=== PATIENT | female | born 1960 | race Caucasian/White ===

== ENCOUNTER → 2019-10-15 11:11 | Outpatient (CLI) | payer MEDICARE, SELFPAY ==
[2019-10-15 10:26] VITALS: BMI 39.8
[2019-10-15 12:38] LABS: Absolute Lymphocyte Count 3.93 X10^3/uL (0.83-4.51); Absolute Neutrophil Count 6.9 X10^3/uL (2.0-7.7); Basophil# 0.07 X10^3/uL; Basophil% 0.6 % (0-1); Eosinophil# 0.42 X10^3/uL; Eosinophils% 3.5 % (0-5); Hematocrit 44.7 % (37-47); Hemoglobin 14.5 g/dL (12.0-15.0); Lymphocyte # 3.93 X10^3/ul (4.0); Lymphocyte % 32.9 % (19-41); Mean Corp Hgb Conc 32.4 g/dL (32-36); Mean Corpuscular Hgb 29.8 pg (27.0-32.0); Mean Corpuscular Volume 91.8 fL (81-99); Mean Platelet Vol. 10.8 fl (6.2-12.0); NRBC Flagged by Analyzer 0 % (0-5); Neutrophil # 6.89 X10^3/uL (2.7-7.7); Neutrophil % 57.7 % (47-70); Platelet Count 285 K/mm3 (150-450); RBC Distribution Width CV 13.7 % (11.6-14.6); RBC Distribution Width SD 46.5 fl (35.1-43.9); Red Blood Count 4.87 M/mm3 (4.2-5.4)
[2019-10-15 12:49] LABS: Hemoglobin A1c 7.5 % (4.2-6.3)
[2019-10-15 13:00] LABS: ALB/GLOB Ratio 0.9 RATIO (0.9-2.4); AST(SGOT) 15 U/L (15-37); Alanine Aminotransfer ALT/SGPT 33 U/L (13-56); Albumin, Serum 3.6 g/dL (3.2-5.0); Alkaline Phosphatase 87 U/L (45-117); Anion Gap 7 (5-15); BUN 16 mg/dL (7-18); BUN/Creat Ratio 17.1 RATIO (10-20); Calcium,Total 8.9 mg/dL (8.5-10.1); Chloride 104 mmol/L (98-107); Cholesterol 211 mg/dL (200); Creatinine, Serum 0.93 mg/dL (0.55-1.02); EST Glomerular Filtration Rate 65 mL/min (>60); Est Glom Filt Rate - Afr Amer 79 mL/min (>60); Globulin 4.2 g/dL (2.2-4.2); Glucose 153 mg/dL (74-106); High Density Lipoprotein 62 mg/dL; Potassium 4.6 mmol/L (3.5-5.1); Protein, Total 7.8 g/dL (6.4-8.2); Sodium Level 139 mmol/L (136-145); Triglycerides 189 mg/dL; Very Low Density Lipoprotein 38 mg/dL (5-40)
[2019-10-15 13:21] LABS: Microalbumin,Random Urine 38.9 mg/L (NO RANGE EST.); Microalbumin:Creatinine Ratio 29.9 mg/g CRE (<30 mg/g CRE)
== END ==
PROVIDERS: PCP Internal Medicine; Visit Provider Internal Medicine
DX: E11.9 Type 2 diabetes mellitus without complications (principal)
CPT/HCPCS: 36415; 80053; 80061; 82043; 82570; 83036; 85025

== ENCOUNTER → 2019-11-25 10:34 | Outpatient (CLI) | payer MEDICARE, SELFPAY ==
[2019-10-15 10:26] VITALS: BMI 39.8
[2019-11-16 15:33] VITALS: BMI 39.9
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
== END ==
PROVIDERS: PCP Internal Medicine; Referring Provider Internal Medicine; Visit Provider Internal Medicine
DX: Z12.31 Encounter for screening mammogram for malignant neoplasm of breast (principal)
CPT/HCPCS: 77063; 77067

== ENCOUNTER → 2020-04-18 | Outpatient (CLI) | payer MEDICARE, MEDICAID, SELFPAY ==
[2020-04-17 14:43] VITALS: BMI 39.4
--- NOTE | 2020-04-18 09:27 | RAD_ITS ---
STUDY: X-RAY - PELVIS AND RIGHT HIP REASON FOR EXAM: Female, 60 years old. Right hip pain TECHNIQUE: 3 views of the pelvis and hip. COMPARISON: None. FINDINGS: There is a non-specific bowel gas pattern. Normal visualized soft tissue structures. There is narrowing with cortical sclerosis and osteophyte formation of the sacroiliac joint consistent with degenerative osteoarthritic changes. Normal bilateral superior and inferior pubic rami. There are degenerative changes of the pubic symphysis with articular narrowing and sclerosis. Normal bilateral ischial tuberosities. Normal visualized femoral head. There is osteoarthritic spur formation of the acetabular rim. There is mild articular joint space narrowing of the hip. RAD/HIP, UNI W/ Pelvis 2-3 Views IMPRESSION: Mild reactive joint space narrowing with mild acetabular spur. Electronically Signed: Portillo Lakhani, at 15:35 EDT , Service support ,
== END | disposition home or self-care (01) ==
LOC: MTRAD 09:27
PROVIDERS: PCP Internal Medicine; Referring Provider Internal Medicine; Visit Provider Internal Medicine
DX: M25.551 Pain in right hip (principal)
CPT/HCPCS: 73502

== ENCOUNTER → 2020-04-27 | Outpatient (CLI) | payer MEDICARE, SELFPAY ==
[2020-04-17 14:43] VITALS: BMI 39.4
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
== END | disposition home or self-care (01) ==
PROVIDERS: PCP Internal Medicine; Referring Provider Internal Medicine; Visit Provider Internal Medicine
DX: M81.0 Age-related osteoporosis without current pathological fracture (principal)
CPT/HCPCS: 77080

== ENCOUNTER → 2020-08-18 | Outpatient (CLI) | payer MEDICARE, SELFPAY ==
[2020-08-18 10:07] VITALS: BMI 37.0
[2020-08-18 12:26] LABS: Absolute Lymphocyte Count 3.58 X10^3/uL (0.83-4.51); Absolute Neutrophil Count 5.7 X10^3/uL (2.0-7.7); Basophil# 0.06 X10^3/uL; Basophil% 0.6 % (0-1); Eosinophil# 0.27 X10^3/uL; Eosinophils% 2.7 % (0-5); Hematocrit 42.2 % (37-47); Hemoglobin 13.6 g/dL (12.0-15.0); Lymphocyte # 3.58 X10^3/ul (4.0); Lymphocyte % 35.4 % (19-41); Mean Corp Hgb Conc 32.2 g/dL (32-36); Monocyte# 0.47 X10^3/uL; Monocyte% 4.6 % (0-10); NRBC Flagged by Analyzer 0 % (0-5); Neutrophil # 5.72 X10^3/uL (2.7-7.7); Neutrophil % 56.5 % (47-70); Platelet Count 294 K/mm3 (150-450); RBC Distribution Width CV 12.6 % (11.6-14.6); RBC Distribution Width SD 43.2 fl (35.1-43.9); Red Blood Count 4.54 M/mm3 (4.2-5.4); White Blood Count 10.1 K/mm3 (4.4-11.0)
[2020-08-18 12:50] LABS: Microalbumin,Random Urine 9.4 mg/L (NO RANGE EST.); Microalbumin:Creatinine Ratio 10.4 mg/g CRE (<30 mg/g CRE)
[2020-08-18 13:00] LABS: ALB/GLOB Ratio 0.9 RATIO (0.9-2.4); AST(SGOT) 14 U/L (15-37); Alanine Aminotransfer ALT/SGPT 32 U/L (13-56); Albumin, Serum 3.5 g/dL (3.2-5.0); Alkaline Phosphatase 90 U/L (45-117); Anion Gap 6 (5-15); BUN 11 mg/dL (7-18); BUN/Creat Ratio 11.8 RATIO (10-20); Calcium,Total 9.2 mg/dL (8.5-10.1); Chloride 106 mmol/L (98-107); Cholesterol 156 mg/dL (200); Creatinine, Serum 0.93 mg/dL (0.55-1.02); EST Glomerular Filtration Rate 65 mL/min (>60); Est Glom Filt Rate - Afr Amer 79 mL/min (>60); Globulin 4.1 g/dL (2.2-4.2); Glucose 152 mg/dL (74-106); High Density Lipoprotein 48 mg/dL; Potassium 4.6 mmol/L (3.5-5.1); Protein, Total 7.6 g/dL (6.4-8.2); Sodium Level 139 mmol/L (136-145); Thyroid Stim Hormone (TSH) 2.11 uIU/mL (0.358-3.74); Triglycerides 197 mg/dL; Very Low Density Lipoprotein 39 mg/dL (5-40)
[2020-08-18 13:09] LABS: Hemoglobin A1c 7.2 % (3.8-5.6)
== END | disposition home or self-care (01) ==
LOC: BIMLAB 10:45
PROVIDERS: PCP Internal Medicine; Referring Provider Nurse Practitioner Family; Visit Provider Nurse Practitioner Family
DX: E11.9 Type 2 diabetes mellitus without complications (principal); E78.5 Hyperlipidemia, unspecified; G47.30 Sleep apnea, unspecified; I11.9 Hypertensive heart disease without heart failure
CPT/HCPCS: 36415; 80053; 80061; 82043; 82570; 83036; 84443; 85025

== ENCOUNTER 2020-08-23 17:30 | Outpatient (RCR) | payer MEDICARE, MEDICAID, SELFPAY ==
[2020-04-17 14:43] VITALS: BMI 39.4
[2020-06-02 10:48] VITALS: BMI 39.4
--- NOTE | 2020-06-13 15:58 | HP.PTEVAL ---
Patient's Visit Information LEE MORENO is a 60 year old F referred to Physical Therapy by Dr. Javy Brooks MD with a diagnosis of R hip pain.. Date of Evaluation: 06/13/20 Physical Therapist: RICHIE Merino - Visit Plan Frequency: 2x /Week Duration: 2 Months Plan: 2X/ week for 4 weks then reassessment for AT for core stability, Hip and knee strength, gait training, with HEP (land and AT) - Subjective Her R hip has pain in it all the time. Hard to sleep on it, hard to walk, hard to ride in the car. They said to do shots or PT and she chose PT. This has been going on for ages. X-ray showed arthritis. She has not seen an orthopedic Dr. They are doing PT first and then a possible ortho consult. Stairs: she goes sW with one foot at a time and uses the rails or goes up and down on her butt. She has osteoporosis and DDD of the spine and all her joints hurts. SHe has nodules in her hands so she is guessing is it RA. Has not seen a Dr for RA. Sit to stand: she reports it take a few tries. To get up from the floor might take me 10 minutes to get up. She does not due baths anymore due to difficulty getting up. No falls for awhile. SHe uses the cane and when really bad she uses a walker. She has lots of stairs at home. She is not sleeping and has not for a long time. She has sleep apnea. Some depression cause she can not do what she wants to do cause of pain. She does have a road bike that she has not been able to ride that for a year. - Pain R hip pain Pain Intensity (Out of 10): 6 back pain Pain Intensity (Out of 10): 3 Pain Intensity Range: 7 - Objective Gait: walks with decrease stance time on the R LE with increase wobble with gait. Pt is able to heel and toe raise if she holds onto the railing. MMT: R hip flex 4-/5, R knee flex 4-/5, R knee ext 4/5, R hip abd 4-/5. L hip flex 4/5, R knee flex 4/5, R knee ext 4/5, R hip abd 4/5. Pt has increase pain with R hip IR but she has decent hip IR ROM. Sit to stand: needs UE to get up out of a chair. - Goals Goal 1:: I HEP (pool and land) Goal Time Frame: 4-6 Weeks Goal 2:: Increase R hip strength by 1/2 muscle grade ( at time of the eval: R hip flex 4-/5, R knee flex 4-/5, R knee ext 4/5, R hip abd 4-/5). Goal Time Frame: 4-6 Weeks Goal 3:: Be able to go on a walk with her daughter with 50% less R hip pain Goal Time Frame: 4-6 Weeks Goal 4:: Be able to sit to stand out of a chair with out having to use her arms to get her our on first attempt. Goal Time Frame: 4-6 Weeks Goal 5:: Be able to walk with increase stance time on B LE. Goal Time Frame: 4-6 Weeks - Rehabilitation Potential Rehabilitation Potential: Good - Anticipated Interventions Thank you for the opportunity to evaluate your patient. For Medicare and Medicare HMO plans, please review the plan of care and approve it. It will need to be FAXED BACK to us at [phone] for Medicare purposes. For Medicare only, by signing this I certify the plan of care. Please let me know if there are questions or concerns regarding this plan of care. Physician Signature: Date:
--- NOTE | 2020-07-17 10:00 | HP.PTREVAL_ITS ---
Dr. Javy Brooks MD, It has been my pleasure to treat LEE MORENO over the last 9 visits for R hip pain.. Please see the progress note below for an update on the physical therapy plan of care! Subjective: Pt reports that the pool is good and [place] is amazing. She still has trouble with the R hip to the R knee. The pool has helped with the pain and flexibility. SHe feels that she is still improving. Pain is higher today from last session... possibly weather. Stairs: going down stairs she has to go down one at a time. She can not sleep on her R hip still. Objective/Function: Gait: walks with decrease stance time on the R. Sit to stand: uses arms and knees to get up on first attempt. LE MMT: R hip flex 4- /5, R knee flex 4/5, R knee ext 4/5, R hip abd 4-/5). Plan Plan: 2X/ week for 3 week for AT for core stability, Hip and knee strength, gait training, with HEP (AT) Goals Goal 1:: I HEP (pool and land) Goal Time Frame: 4-6 Weeks Goal 2:: Increase R hip strength by 1/2 muscle grade ( at time of the eval: R hip flex 4-/5, R knee flex 4-/5, R knee ext 4/5, R hip abd 4-/5). Goal Time Frame: 4-6 Weeks Goal Progress: Progressing Goal 3:: Be able to go on a walk with her daughter with 50% less R hip pain Goal Time Frame: 4-6 Weeks Goal Progress: Progressing Goal 4:: Be able to sit to stand out of a chair with out having to use her arms to get her our on first attempt. Goal Time Frame: 4-6 Weeks Goal Progress: Progressing Goal 5:: Be able to walk with increase stance time on B LE. Goal Time Frame: 4-6 Weeks Goal Progress: Progressing Anticipated Interventions Please do not hesitate to contact me at [phone] by phone or if you have questions or concerns regarding this new plan of care! Sincerely, Laura Hernandez, MPT
--- NOTE | 2020-08-14 11:45 | HP.PTREVAL ---
Dr. Javy Brooks MD, It has been my pleasure to treat LEE MORENO over the last 16 visits for R hip pain.. Please see the progress note below for an update on the physical therapy plan of care! Subjective: Pt is able to walk with her daughter with less pain. She can go without stopping now. Walking and steps increase her pain. She can sleep for a little bit of time on her R side now and could not before. Objective/Function: MMT: R hip flex 4/5, R knee flex 4/5, R knee ext 4/5, R hip abd 4-/5) Pt is able to walk on heels and toes. Pt is able to get out of a chair without the use of her UE's. Pt still does not walk with even weight on B LE's. Discussed continuing pool and benefits of land as well. Discussed our COVID and H&W rules with mask wearing etc. Plan Plan: 1-2 additional visits for H&W program to be I on doing at her own the DC PT Goals Goal 1:: I HEP (pool and land) Goal Time Frame: 4-6 Weeks Goal Progress: Goal Met Goal 2:: Increase R hip strength by 1/2 muscle grade ( at time of the eval: R hip flex 4-/5, R knee flex 4-/5, R knee ext 4/5, R hip abd 4-/5). Goal Time Frame: 4-6 Weeks Goal Progress: Goal Met Goal 3:: Be able to go on a walk with her daughter with 50% less R hip pain Goal Time Frame: 4-6 Weeks Goal Progress: Goal Met Goal 4:: Be able to sit to stand out of a chair with out having to use her arms to get her our on first attempt. Goal Time Frame: 4-6 Weeks Goal Progress: Goal Met Goal 5:: Be able to walk with increase stance time on B LE. Goal Time Frame: 4-6 Weeks Goal Progress: Progressing Anticipated Interventions Please do not hesitate to contact me at [phone] by phone or if you have questions or concerns regarding this new plan of care! Sincerely, Laura Hernandez, MPT
--- NOTE | 2020-08-23 18:27 | HP.PTDCSUM ---
It has been my pleasure to treat LEE MORENO referred by Dr. Javy Brooks MD, with the diagnosis of R hip pain. for a total of 18 visit(s). Discharge Date: 08/23/20 Please see the following information for a summary of their discharge status. Subjective: Pt reports that she is about 8/10 with R hip today. Could be the weather as that really affects it sometimes. Pt reports that she was a little sore after last time but nothing that she could not handle R hip pain Pain Intensity (Out of 10): 8 back pain Pain Intensity (Out of 10): 4 R knee Pain Intensity (Out of 10): 3 % Improvement: 50 Objective/Function: Pt is I in setting up gym equip. SHe knows to stop in a ROM if it is painful especially with knee ext and leg press. Goal 1:: I HEP (pool and land) Goal Progress: Goal Met Goal 2:: Increase R hip strength by 1/2 muscle grade ( at time of the eval: R hip flex 4-/5, R knee flex 4-/5, R knee ext 4/5, R hip abd 4-/5). Goal Progress: Goal Met Goal 3:: Be able to go on a walk with her daughter with 50% less R hip pain Goal Progress: Goal Met Goal 4:: Be able to sit to stand out of a chair with out having to use her arms to get her our on first attempt. Goal Progress: Goal Met Goal 5:: Be able to walk with increase stance time on B LE. Goal Progress: Progressing Plan: DC PT to H&W program. Pt has exercise log with the above exercises on it and knows how to set them up. Discharge Comments: DC PT If there are questions or concerns regarding this patient's physical therapy, please feel free to call me at [phone]. Thank you for the referral of this patient. Sincerely, Laura Hernandez, MPT
== END 2020-08-23 19:00 | disposition home or self-care (01) ==
LOC: PT 17:30
PROVIDERS: PCP Internal Medicine; Referring Provider Internal Medicine; Visit Provider Internal Medicine
DX: M25.551 Pain in right hip (principal)
CPT/HCPCS: 97110; 97113; 97162; 97530

== ENCOUNTER → 2020-12-29 | Outpatient (CLI) | payer MEDICARE, MEDICAID, SELFPAY ==
[2020-12-29 15:04] VITALS: BMI 37.8
[2020-12-29 17:49] LABS: Mucous, Urine 0 SEEN /hpf (<or=2+); Red Blood Cells-Urine 0 SEEN /hpf (0-5); White Blood Cells 0 SEEN /hpf (0-5)
[2020-12-29 18:15] LABS: Color, Urine Yellow (Yellow); Glucose, Dipstick 1000 mg/dl (Normal); Ketone-Dipstick Negative (Negative); Leukocyte Esterase-Dipstick Negative /ul (Negative); Nitrite-Dipstick Negative (Negative); Occult Blood-Urine 10 /ul (Negative); Protein-Dipstick Negative (Negative); Specific Gravity, Urine 1.015 (1.002-1.030); Urine Bilirubin Dipstick Negative (Negative); Urine Clarity Clear (Clear); Urine Urobilinogen Normal (Normal)
[2020-12-29 18:23] LABS: Bacteria 1+ /hpf (None Seen); Squamous Epithelial Cells - UA 0-5 SEEN /hpf (5-10)
== END | disposition home or self-care (01) ==
LOC: LABSPEC 17:46
PROVIDERS: PCP Internal Medicine; Visit Provider Physician Assistant Surgical
DX: N39.0 Urinary tract infection, site not specified (principal); R30.0 Dysuria; R10.9 Unspecified abdominal pain; M54.9 Dorsalgia, unspecified
CPT/HCPCS: 81001; 87086; 87088

== ENCOUNTER → 2021-01-02 11:09 | Outpatient (CLI) | payer MEDICARE, MEDICAID, SELFPAY ==
[2021-01-02 10:27] VITALS: BMI 37.5
[2021-01-02 11:12] LABS: Bacteria 0 SEEN /hpf (None Seen); Mucous, Urine 0 SEEN /hpf (<or=2+); Red Blood Cells-Urine 0 SEEN /hpf (0-5); White Blood Cells 0 SEEN /hpf (0-5)
[2021-01-02 12:09] LABS: Color, Urine Yellow (Yellow); Glucose, Dipstick Normal (Normal); Ketone-Dipstick Negative (Negative); Leukocyte Esterase-Dipstick Negative /ul (Negative); Nitrite-Dipstick Negative (Negative); Occult Blood-Urine Negative /ul (Negative); Protein-Dipstick Negative (Negative); Specific Gravity, Urine 1.015 (1.002-1.030); Urine Bilirubin Dipstick Negative (Negative); Urine Clarity Clear (Clear); Urine Urobilinogen Normal (Normal)
[2021-01-02 12:18] LABS: Squamous Epithelial Cells - UA 0-5 SEEN /hpf (5-10)
== END ==
PROVIDERS: PCP Internal Medicine; Visit Provider Nurse Practitioner Family
DX: R35.8 Other polyuria (principal)
CPT/HCPCS: 81001

== ENCOUNTER → 2021-04-06 10:35 | Outpatient (CLI) | payer MEDICARE, MEDICAID, SELFPAY ==
[2021-02-16 11:10] VITALS: BMI 37.4
[2021-04-06 12:41] LABS: Hemoglobin A1c 6.9 % (3.8-5.6)
[2021-04-06 13:04] LABS: ALB/GLOB Ratio 0.9 RATIO (0.9-2.4); AST(SGOT) 10 U/L (15-37); Alanine Aminotransfer ALT/SGPT 24 U/L (13-56); Albumin, Serum 3.5 g/dL (3.2-5.0); Alkaline Phosphatase 81 U/L (45-117); Anion Gap 6 (5-15); BUN 12 mg/dL (7-18); BUN/Creat Ratio 13.1 RATIO (10-20); Chloride 107 mmol/L (98-107); Cholesterol 147 mg/dL (200); Creatinine, Serum 0.92 mg/dL (0.55-1.02); EST Glomerular Filtration Rate 66 mL/min (>60); Est Glom Filt Rate - Afr Amer 80 mL/min (>60); Globulin 3.8 g/dL (2.2-4.2); Glucose 130 mg/dL (74-106); High Density Lipoprotein 52 mg/dL; Potassium 4.4 mmol/L (3.5-5.1); Protein, Total 7.3 g/dL (6.4-8.2); Sodium Level 141 mmol/L (136-145); Triglycerides 115 mg/dL; Very Low Density Lipoprotein 23 mg/dL (5-40)
[2021-04-06 13:22] LABS: Microalbumin,Random Urine 7.8 mg/L (NO RANGE EST.); Microalbumin:Creatinine Ratio 4.9 mg/g CRE (<30 mg/g CRE)
== END ==
PROVIDERS: PCP Family Medicine; Referring Provider Family Medicine; Visit Provider Family Medicine
DX: E11.9 Type 2 diabetes mellitus without complications (principal); I11.9 Hypertensive heart disease without heart failure
CPT/HCPCS: 36415; 80053; 80061; 82043; 82570; 83036

== ENCOUNTER → 2021-08-17 | Outpatient (CLI) | payer MEDICARE, SELFPAY | END | disposition home or self-care (01) | LOC: LABSPEC 14:53 | PROVIDERS: PCP Family Medicine; Referring Provider Physician Assistant Surgical; Visit Provider Physician Assistant Surgical | DX: Z11.52 Encounter for screening for COVID-19 (principal) | CPT/HCPCS: 87635; U0005; U0003 ==

== ENCOUNTER 2021-11-07 09:16 | Outpatient (CLI) | payer MEDICARE, MEDICAID, SELFPAY ==
[2021-11-07 14:50] LABS: Bacteria 0 SEEN /hpf (None Seen); Mucous, Urine 0 SEEN /hpf (<or=2+); Red Blood Cells-Urine 0 SEEN /hpf (0-5); Squamous Epithelial Cells - UA 0 SEEN /hpf (5-10); White Blood Cells 0 SEEN /hpf (0-5)
[2021-11-07 16:51] LABS: Color, Urine Straw (Yellow); Glucose, Dipstick 1000 mg/dl (Normal); Ketone-Dipstick Negative (Negative); Leukocyte Esterase-Dipstick Negative /ul (Negative); Nitrite-Dipstick Negative (Negative); Occult Blood-Urine Negative /ul (Negative); Protein-Dipstick Negative (Negative); Urine Bilirubin Dipstick Negative (Negative); Urine Clarity Clear (Clear); Urine Urobilinogen Normal (Normal)
== END 2021-11-07 23:59 | disposition short-term general hospital (02) ==
LOC: LABSPEC 09:17
PROVIDERS: Nurse Practitioner Family; PCP Internal Medicine; Visit Provider Physician Assistant
DX: Z11.52 Encounter for screening for COVID-19 (principal); N39.0 Urinary tract infection, site not specified; R35.0 Frequency of micturition
CPT/HCPCS: 81001; 87086; 87088; 87635; U0003; U0005

== ENCOUNTER 2022-01-09 08:37 | Outpatient (CLI) | payer MEDICARE, MEDICAID, SELFPAY ==
[2022-01-09 10:04] LABS: Hematocrit 44.6 % (37-47); Hemoglobin 14.4 g/dL (12.0-15.0); Mean Corp Hgb Conc 32.3 g/dL (32-36); Mean Corpuscular Hgb 30.3 pg (27.0-32.0); Mean Corpuscular Volume 93.7 fL (81-99); Mean Platelet Vol. 10.6 fl (6.2-12.0); Platelet Count 262 K/mm3 (150-450); RBC Distribution Width CV 13.1 % (11.6-14.6); RBC Distribution Width SD 44.8 fl (35.1-43.9); Red Blood Count 4.76 M/mm3 (4.2-5.4); White Blood Count 8.1 K/mm3 (4.4-11.0)
== END 2022-01-09 23:59 | disposition home or self-care (01) ==
LOC: LAB.FUTURE 08:39 → BIMLAB 08:40
PROVIDERS: PCP Internal Medicine; Referring Provider Internal Medicine Pulmonary Disease; Visit Provider Internal Medicine Pulmonary Disease
DX: D64.9 Anemia, unspecified (principal)
CPT/HCPCS: 36415; 85027

== ENCOUNTER 2022-01-28 10:34 | Outpatient (CLI) | payer MEDICARE, MEDICAID, SELFPAY ==
[2022-01-28 12:43] LABS: ALB/GLOB Ratio 0.9 RATIO (0.9-2.4); AST(SGOT) 15 U/L (15-37); Alanine Aminotransfer ALT/SGPT 28 U/L (13-56); Albumin, Serum 3.7 g/dL (3.2-5.0); Alkaline Phosphatase 78 U/L (45-117); Anion Gap 8 (5-15); BUN 20 mg/dL (7-18); Calcium,Total 8.9 mg/dL (8.5-10.1); Chloride 106 mmol/L (98-107); Cholesterol 161 mg/dL (200); Creatinine, Serum 0.91 mg/dL (0.55-1.02); EST Glomerular Filtration Rate 67 mL/min (>60); Est Glom Filt Rate - Afr Amer 81 mL/min (>60); Glucose 165 mg/dL (74-106); High Density Lipoprotein 51 mg/dL; Potassium 4.3 mmol/L (3.5-5.1); Protein, Total 7.7 g/dL (6.4-8.2); Sodium Level 141 mmol/L (136-145); Thyroid Stim Hormone (TSH) 2.08 uIU/mL (0.358-3.74); Triglycerides 176 mg/dL; Very Low Density Lipoprotein 35 mg/dL (5-40)
[2022-01-28 12:45] LABS: Vitamin B12 709 pg/mL (211-911); Vitamin D,25 Hydroxy 102.3 ng/mL
[2022-01-28 12:49] LABS: Hemoglobin A1c 7.6 % (3.8-5.6)
--- NOTE | 2022-01-28 12:59 | RAD_ITS ---
STUDY: X-RAY - LEFT HAND REASON FOR EXAM: Female, 61 years old. Left fifth digit pain. TECHNIQUE: 3 view(s) of the hand. COMPARISON: None. FINDINGS: Osteopenia. Negative ulnar variance. Mild arthrosis of the radiocarpal articulation. Mild arthrosis of the radial ulnar articulation. Moderate arthrosis of the radiocarpal row. Moderate arthrosis of the first CMC joint. Moderate arthrosis of the MCP and IP joints. Flexion contracture at the DIP joint of the second digit. The soft tissue structures are unremarkable. RAD/Hand Min 3 Views IMPRESSION: Osteopenia with diffuse osteoarthritic changes as described. Negative ulnar variance. No acute abnormality, chondrocalcinosis, erosive changes or periostitis. Electronically Signed: Nate Melissa MD at 13:18 EDT ,
--- NOTE | 2022-01-28 12:59 | RAD_ITS ---
STUDY: X-RAY - RIGHT SHOULDER REASON FOR EXAM: Female, 61 years old. Right shoulder pain with limited range of motion. TECHNIQUE: 4 view(s) of the shoulder. COMPARISON: None. FINDINGS: Osteopenia. Mild arthrosis of the glenohumeral joint. Mild arthrosis of the AC joint. Normal acromion. Sclerosis and cystic change of the greater tuberosity of the humeral head. The soft tissue structures are unremarkable. Normal visualized pulmonary apex. RAD/Shoulder min 2 Views IMPRESSION: Osteopenia with osteoarthritic changes as described. No acute abnormality, chondrocalcinosis, erosive changes or periostitis. Electronically Signed: Nate Melissa MD at 13:19 EDT ,
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
== END 2022-01-28 23:59 | disposition home or self-care (01) ==
PROVIDERS: Internal Medicine Endocrinology, Diabetes & Metabolism; PCP Internal Medicine; Referring Provider Internal Medicine Pulmonary Disease; Visit Provider Internal Medicine Pulmonary Disease
DX: M25.511 Pain in right shoulder (principal); E11.65 Type 2 diabetes mellitus with hyperglycemia; E11.42 Type 2 diabetes mellitus with diabetic polyneuropathy; M79.646 Pain in unspecified finger(s); R13.10 Dysphagia, unspecified; E78.2 Mixed hyperlipidemia; I10 Essential (primary) hypertension; E55.9 Vitamin D deficiency, unspecified; W19.XXXA Unspecified fall, initial encounter; Z79.84 Long term (current) use of oral hypoglycemic drugs
CPT/HCPCS: 36415; 73030; 73130; 74230; 80053; 80061; 82306; 82607; 83036; 84443; 92611

== ENCOUNTER 2022-02-06 11:52 | Outpatient (RCR) | payer MEDICARE, MEDICAID, SELFPAY | END 2022-02-06 11:53 | disposition home or self-care (01) | LOC: PT 11:52 | PROVIDERS: PCP Internal Medicine; Referring Provider Physician Assistant; Visit Provider Physician Assistant | DX: M25.511 Pain in right shoulder (principal) ==

== ENCOUNTER → 2022-06-07 | Outpatient (CLI) | payer MEDICARE, MEDICAID, SELFPAY ==
[2022-06-07 17:36] LABS: Absolute Lymphocyte Count 3.58 X10^3/uL (0.83-4.51); Absolute Neutrophil Count 6.5 X10^3/uL (2.0-7.7); Basophil# 0.07 X10^3/uL; Basophil% 0.6 % (0-1); Eosinophil# 0.24 X10^3/uL; Eosinophils% 2.2 % (0-5); Hemoglobin 14.5 g/dL (12.0-15.0); Lymphocyte # 3.58 X10^3/ul (0.83-4.51); Lymphocyte % 32.7 % (19-41); Mean Corpuscular Hgb 30.8 pg (27.0-32.0); Mean Corpuscular Volume 93.4 fL (81-99); Monocyte# 0.54 X10^3/uL; Monocyte% 4.9 % (0-10); NRBC Flagged by Analyzer 0 % (0-5); Neutrophil % 59.3 % (47-70); Platelet Count 261 K/mm3 (150-450); RBC Distribution Width CV 12.9 % (11.6-14.6); RBC Distribution Width SD 44.1 fl (35.1-43.9); Red Blood Count 4.71 M/mm3 (4.2-5.4)
[2022-06-07 17:49] LABS: Vitamin D,25 Hydroxy 68.5 ng/mL
[2022-06-07 18:05] LABS: AST(SGOT) 14 U/L (15-37); Alanine Aminotransfer ALT/SGPT 31 U/L (13-56); Albumin, Serum 3.5 g/dL (3.2-5.0); Alkaline Phosphatase 75 U/L (45-117); Anion Gap 6 (5-15); BUN 23 mg/dL (7-18); BUN/Creat Ratio 20.4 RATIO (10-20); Calcium,Total 9.4 mg/dL (8.5-10.1); Chloride 106 mmol/L (98-107); Creatinine, Serum 1.13 mg/dL (0.55-1.02); EST Glomerular Filtration Rate 52 mL/min (>60); Est Glom Filt Rate - Afr Amer 63 mL/min (>60); Globulin 3.6 g/dL (2.2-4.2); Glucose 156 mg/dL (74-106); Protein, Total 7.1 g/dL (6.4-8.2); Sodium Level 139 mmol/L (136-145); T4 Free Direct 0.82 ng/dL (0.76-1.46); Thyroid Stim Hormone (TSH) 1.82 uIU/mL (0.358-3.74)
== END | disposition home or self-care (01) ==
LOC: MTLAB 13:40
PROVIDERS: PCP Internal Medicine; Referring Provider Physician Assistant; Visit Provider Physician Assistant
DX: E78.2 Mixed hyperlipidemia (principal); E11.9 Type 2 diabetes mellitus without complications; I95.9 Hypotension, unspecified; G47.33 Obstructive sleep apnea (adult) (pediatric); R42 Dizziness and giddiness; E55.9 Vitamin D deficiency, unspecified; E53.8 Deficiency of other specified B group vitamins; M81.0 Age-related osteoporosis without current pathological fracture
CPT/HCPCS: 36415; 80053; 82306; 84439; 84443; 85025

== ENCOUNTER 2022-06-21 13:00 | Outpatient (RCR) | payer MEDICARE, MEDICAID, SELFPAY ==
--- NOTE | 2021-11-16 15:12 | HP.PTEVAL ---
Patient's Visit Information LEE MORENO is a 61 year old F referred to Physical Therapy by Syed Alexander, CONTRACT PROGRAMMER-C with a diagnosis of LOW BACK PAIN,CHRONIC PAIN ,OSETEOATHRITIS AGE -RELATED OSTEOPOROSIS. Date of Evaluation: 11/16/21 Physical Therapist: Baldomero Silverman, PT, Cert MDT, OCS - Visit Plan Frequency: 2x /Week Duration: 4 Weeks Plan: PT INTERVETIONS AQUATIC THERAPY ROM/STRENGTHENING BLE ,DLS ,POSTURE EX'S AND FLEXABILITY - Subjective This 61 y/o female presents to physical therapy with chronic lumbar pain. Patient has had low back pain for many years. Patient Syed Alexander recommended PT . Patient c/o pain symmetrical lumbar with radiating symptoms lateral hip to right side down hamstring. Aggravating factors walking, bending, lifting ,standing ,and sitting extended periods. Alleviating factors unloading and rest . Symptoms affects sleeping , especially on hips. Occasional tingling right lateral thigh. Coughing/sneezing-. Bowel/bladder-. Patient prior PT in past. Patient has had pain management. Patient has comorbities influences pain multiple lucas as child in [place], osteoporosis, DDD ,OA neuropathy, DM , LEFT knee surgery left knee, heart cath ,sleep apnea, pneumonia. SOCIAL: single. VOCATION: disability - Pain Bilateral Back Pain Intensity (Out of 10): 5 Pain Intensity Range: 10 Right Lower Extremity Pain Intensity (Out of 10): 5 Pain Intensity Range: 10 Comment: lateral hip to knee - Objective POSTURE: mild forward posture. GAIT: reciprocal pattern. SYMMTRIES: align. GAIT: reciprocal pattern mild forward posture. PALPATION: unremarkable. MMT: quads/hams 4-/5 left ,right 4-/5,hip flexion left 3+/5, right 4-/5,ankle 4/5. FLEXABLITY: hamstrings min tight. LUMBAR ROM: flexion mod loss, extension mod/severe loss ,side glides mod loss - Special Tests L/S Slump test left side: Negative L/S Slump test right side: Positive L/S Left Straight Leg Raise: Negative L/S Right Straight Leg Raise: Negative Lumbar Standing: Flexion - Mechanical Response: No effect Lumbar Standing: Flexion - Symptoms During Testing: Increases Lumbar Standing: Flexion - Symptoms After Testing: Worse Lumbar Standing: Extension - Mechanical Response: No effect Lumbar Standing: Extension - Symptoms During Testing: Abolishes Lumbar Standing: Extension - Symptoms After Testing: Worse Lumbar Standing: Right Side Glides - Mechanical Response: No effect Lumbar Standing: Right Side [place] - Symptoms During Testing: No effect Lumbar Standing: Right Side [place] - Symptoms After Testing: No effect Lumbar Standing: Left Side [place] - Mechanical Response: No effect Lumbar Standing: Left Side [place] - Symptoms During Testing: No effect Lumbar Standing: Left Side [place] - Symptoms After Testing: No effect - Balance/Special Test Scores Oswestry Low Back Score: 30 - Goals Goal 1:: I with HEP for Aquatics therapy Goal Time Frame: 4-6 Weeks Goal 2:: I with posture and modifications to manage symptom with ADLS' 50% of the time Goal Time Frame: 4-6 Weeks Goal 3:: Patient to demonstrate 50% improvement with decrease back pain to improve ADLS' Goal Time Frame: 4-6 Weeks Goal 4:: Patient to demonstrate increase strength quads/hams 4/5 and hip flexion 4-/5 to improve gait Goal Time Frame: 4-6 Weeks Goal 5:: Patient improve back owestry score by 5 points to improve QOL, Goal Time Frame: 4-6 Weeks - Rehabilitation Potential Physical Therapy Diagnosis: This patient has chronic low back pain with radicular symptoms right leg with pain during ,motion testing, positioning ,weakness left > right leg along with comorbties contribute to patient impairments thus benefit from skilled PT Rehabilitation Potential: Good - Anticipated Interventions Patient/Client Instruction: Educate patient on: Condition, Plan of Care For the Purpose of:: To decrease pain, To increase ROM, To improve muscle performance and motor function, To improve ability to perform ADL's, To increase tolerance to activity/condition/position, To improve performance and independence with ADL's, To improve ability of physical actions for home/community/work/leisure, To improve health of tissue, To decrease soft tissue restriction, To increase flexibility/ROM Therapeutic Exercise to Include: Strength training, Power training, Postural training, Flexibilty training, Active ROM, Dynamic Lumbar Stabilization Comment: BLE For the Purpose of:: To decrease pain, To increase ROM, To improve muscle performance and motor function, To improve ability to perform ADL's, To increase tolerance to activity/condition/position, To improve performance and independence with ADL's, To improve ability of physical actions for home/community/work/leisure, To improve health of tissue, To decrease soft tissue restriction, To increase flexibility/ROM Thank you for the opportunity to evaluate your patient. For Medicare and Medicare HMO plans, please review the plan of care and approve it. It will need to be FAXED BACK to us at [phone] for Medicare purposes. For Medicare only, by signing this I certify the plan of care. Please let me know if there are questions or concerns regarding this plan of care. Physician Signature: Date:
--- NOTE | 2022-01-03 12:06 | HP.PTREVAL ---
Syed Alexander, SUPERVISOR INSPECTING-C, It has been my pleasure to treat LEE MORENO over the last 11 visits for LOW BACK PAIN,CHRONIC PAIN ,OSETEOATHRITIS AGE -RELATED OSTEOPOROSIS. Please see the progress note below for an update on the physical therapy plan of care! Subjective: Pain is some better. would like to try land and water Objective/Function: POSTURE: MILD POSTURE. GAIT: NORMAL WILVER RECIPROCAL MILD FOWARD. PALAPTION: SI/LS. LUMBAR ROM: flexion mod loss, extension mod loss ,side glides mod loss. FLEXABILITY: hams mod tight ,piriformis mod tight Plan Plan: PRCAUTION:LATEX ALLERGY. THEN WILL PROGRESS TO 1xland/aquatics. PT INTERVETIONS AQUATIC THERAPY ROM/STRENGTHENING BLE, DLS, POSTURE EX'S AND FLEXABILITY Balance/Gait/Functional tests - Balance/Special Test Scores Oswestry Low Back Score: 24 Goals Goal 1:: I with HEP for Aquatics therapy Goal Time Frame: 4-6 Weeks Goal Progress: Progressing Goal 2:: I with posture and modifications to manage symptom with ADLS' 50% of the time Goal Time Frame: 4-6 Weeks Goal Progress: Progressing Goal 3:: Patient to demonstrate 50% improvement with decrease back pain to improve ADLS' Goal Time Frame: 4-6 Weeks Goal Progress: Progressing Goal 4:: Patient to demonstrate increase strength quads/hams 4/5 and hip flexion 4-/5 to improve gait Goal Time Frame: 4-6 Weeks Goal Progress: Progressing Goal 5:: Patient improve back owestry score by 5 points to improve QOL, Goal Time Frame: 4-6 Weeks Goal Progress: Progressing Anticipated Interventions Patient/Client Instruction: Educate patient on: Condition, Plan of Care For the Purpose of:: To decrease pain, To increase ROM, To improve muscle performance and motor function, To improve ability to perform ADL's, To increase tolerance to activity/condition/position, To improve performance and independence with ADL's, To improve ability of physical actions for home/community/work/leisure, To improve health of tissue, To decrease soft tissue restriction, To increase flexibility/ROM Therapeutic Exercise to Include: Strength training, Power training, Postural training, Flexibilty training, Active ROM, Dynamic Lumbar Stabilization Comment: BLE For the Purpose of:: To decrease pain, To increase ROM, To improve muscle performance and motor function, To improve ability to perform ADL's, To increase tolerance to activity/condition/position, To improve performance and independence with ADL's, To improve ability of physical actions for home/community/work/leisure, To improve health of tissue, To decrease soft tissue restriction, To increase flexibility/ROM Please do not hesitate to contact me at [phone] by phone or if you have questions or concerns regarding this new plan of care! Sincerely, Baldomero Silverman, PT, Cert MDT, OCS
--- NOTE | 2022-01-24 12:13 | HP.PTDCSUM ---
It has been my pleasure to treat LEE MORENO referred by RONA Barrera, with the diagnosis of LOW BACK PAIN,CHRONIC PAIN ,OSETEOATHRITIS AGE -RELATED OSTEOPOROSIS for a total of 16 visit(s). Discharge Date: Please see the following information for a summary of their discharge status. Subjective: pain is worse today especially in back Bilateral Back Pain Intensity (Out of 10): 9 Right Lower Extremity Pain Intensity (Out of 10): 5 LLE Pain Intensity (Out of 10): 3 % Improvement: 30 Objective/Function: [place] tx well with ex's pain is some less with graded ROM and strengthening Goal 1:: I with HEP for Aquatics therapy Goal Progress: Progressing Goal 2:: I with posture and modifications to manage symptom with ADLS' 50% of the time Goal Progress: Progressing Goal 3:: Patient to demonstrate 50% improvement with decrease back pain to improve ADLS' Goal Progress: Progressing Goal 4:: Patient to demonstrate increase strength quads/hams 4/5 and hip flexion 4-/5 to improve gait Goal Progress: Progressing Goal 5:: Patient improve back owestry score by 5 points to improve QOL, Goal Progress: Progressing Plan: PRCAUTION:LATEX ALLERGY. THEN WILL PROGRESS TO 1xland/aquatics. PT INTERVETIONS AQUATIC THERAPY ROM/STRENGTHENING BLE, DLS, POSTURE EX'S AND FLEXABILITY If there are questions or concerns regarding this patient's physical therapy, please feel free to call me at [phone]. Thank you for the referral of this patient. Sincerely, Baldomero Silverman, PT, Cert MDT, OCS Balance/Gait/Functional tests - Balance/Special Test Scores Oswestry Low Back Score: 24
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
--- NOTE | 2022-02-14 12:56 | HP.PTREVAL ---
Syed Alexander, VAHID-C, It has been my pleasure to treat ELE MORENO over the last 20 visits for LOW BACK PAIN,CHRONIC PAIN ,OSETEOATHRITIS AGE -RELATED OSTEOPOROSIS. Please see the progress note below for an update on the physical therapy plan of care! Subjective: Doing better..exercises helping Objective/Function: POSTURE: WFL. NEURO: INTACT. MMT: QUADS/HAMS 4/5,HIPO FLEXION 4-/5,ANKLE 4/5. LUMBAR ROM: flexion mod loss ,extension mod loss Plan Plan: PRCAUTION:LATEX ALLERGY. P ROM/STRENGTHENING BLE, DLS, POSTURE EX'S AND FLEXABILITY Balance/Gait/Functional tests - Balance/Special Test Scores Oswestry Low Back Score: 20 Quick DASH Score: 54.5450 Goals Goal 1:: I with HEP lumbar on land( new goal) Goal Time Frame: 4-6 Weeks Goal Progress: Progressing Goal 2:: I with posture and modifications to manage symptom with ADLS' 50% of the time Goal Time Frame: 4-6 Weeks Goal Progress: Progressing Goal 3:: Patient to demonstrate 50% improvement with decrease back pain to improve ADLS' Goal Time Frame: 4-6 Weeks Goal Progress: Progressing Goal 4:: Patient to demonstrate increase strength quads/hams 4/5 and hip flexion 4-/5 to improve gait Goal Time Frame: 4-6 Weeks Goal Progress: Goal Met Goal 5:: Patient improve back owestry score by 5 points to improve QOL( new goal) Goal Time Frame: 4-6 Weeks Goal Progress: Progressing Anticipated Interventions Patient/Client Instruction: Educate patient on: Condition, Plan of Care For the Purpose of:: To decrease pain, To increase ROM, To improve muscle performance and motor function, To improve ability to perform ADL's, To increase tolerance to activity/condition/position, To improve performance and independence with ADL's, To improve ability of physical actions for home/community/work/leisure, To improve health of tissue, To decrease soft tissue restriction, To increase flexibility/ROM Therapeutic Exercise to Include: Strength training, Power training, Postural training, Flexibilty training, Active ROM, Dynamic Lumbar Stabilization Comment: BLE For the Purpose of:: To decrease pain, To increase ROM, To improve muscle performance and motor function, To improve ability to perform ADL's, To increase tolerance to activity/condition/position, To improve performance and independence with ADL's, To improve ability of physical actions for home/community/work/leisure, To improve health of tissue, To decrease soft tissue restriction, To increase flexibility/ROM Please do not hesitate to contact me at [phone] by phone or if you have questions or concerns regarding this new plan of care! Sincerely, Baldomero Silverman, PT, Cert MDT, OCS
--- NOTE | 2022-03-07 11:25 | HP.PTRE(2) ---
Syed Alexander, VAHID-C, It has been my pleasure to treat LEE MORENO over the last 8 visits for BILATERAL SHOULDER ROTATOR CUFF ARTHROPATHY. Please see the progress note below for an update on the physical therapy plan of care! Subjective: ROM and strength shoulders improving. left better than right Objective/Function/Assessment: POSTURE: rounded shoulders head forward. NEURO: denies paresthesia/tingling. AROM: shoulder flexion R 140 degrees , L 160 degrees. abduction R 135 degrees ,L 150 degrees ,ER 90. MMT: RTC 4/5 except supraspinatus 4-/5 deltoid Plan Plan: CONT WITH POC. PRECAUTION -LATEX ALLEGERY ,SKIN GRAFTS FROM [facility]. PT INTERVETIONS POSTURAL EX'S,RTC /SCAPULAR STRENGTHENING AND ROM Goals Goal 1:: I with HEP for shoulders Goal Time Frame: 4-6 Weeks Goal Progress: Progressing Goal 2:: Patient demonstrate 50% improvement with function with OH activities with less pain Goal Time Frame: 4-6 Weeks Goal Progress: Progressing Goal 3:: Patient to improve AROM Bilateral shoulders by 10 degrees to improve function flexion to reach in cupboards Goal Time Frame: 4-6 Weeks Goal Progress: Progressing Goal 4:: Patient to improve quick dash by 5 points to improve function with OH activities.(new goal) Goal Time Frame: 4-6 Weeks Goal 5:: Patient be able to perform ADLS with min limitations with shoulders Goal Time Frame: 4-6 Weeks Goal Progress: Progressing Anticipated Interventions Patient/Client Instruction: Educate patient on: Condition, Plan of Care For the Purpose of:: To decrease pain, To increase ROM, To improve muscle performance and motor function, To improve ability to perform ADL's, To increase tolerance to activity/condition/position, To improve ability of physical actions for home/community/work/leisure, To improve health of tissue, To decrease soft tissue restriction, To increase flexibility/ROM, To reduce risk of recurrence Therapeutic Exercise to Include: Strength training, Postural training, Flexibilty training, Passive ROM, Active ROM For the Purpose of:: To decrease pain, To increase ROM, To improve muscle performance and motor function, To improve ability to perform ADL's, To increase tolerance to activity/condition/position, To improve ability of physical actions for home/community/work/leisure, To improve health of tissue, To decrease soft tissue restriction, To increase flexibility/ROM, To improve tolerance to ADL's TENS: Yes IF ES: Yes Cryotherapy (ice pack, ice massage): Yes Thermo therapy (hot pack): Yes For the Purpose of:: To decrease pain, To improve nutrient delivery to tissue, To increase oxygenation perfusion, To improve health of tissue, To decrease soft tissue restriction Please do not hesitate to contact me at [phone] by phone or if you have questions or concerns regarding this new plan of care! Sincerely, Baldomero Silverman, PT, Cert MDT, OCS
--- NOTE | 2022-03-07 11:56 | HP.PTREVAL_ITS ---
Syed Alexander, MEDICATION ASSISTANT-C, It has been my pleasure to treat LEE MORENO over the last 25 visits for LOW BACK PAIN,CHRONIC PAIN ,OSETEOATHRITIS AGE -RELATED OSTEOPOROSIS. Please see the progress note below for an update on the physical therapy plan of care! Subjective: I have been pleased with outcome with back ,able to walk in grocery store Objective/Function: POSTURE: mild forward posture. GAIT: reciprocal pattern. MMT: quads/hams/hip/ankle 4/5. LUMBAR ROM: flexion WFL, extension mod loss. FLEXABILITY: hamstrings min tight Plan Plan: cont poc. PRCAUTION:LATEX ALLERGY. P ROM/STRENGTHENING BLE, DLS, POSTURE EX'S AND FLEXABILITY Balance/Gait/Functional tests - Balance/Special Test Scores Oswestry Low Back Score: 17 Quick DASH Score: 38.6350 Goals Goal 1:: I with HEP lumbar on land( new goal) Goal Time Frame: 4-6 Weeks Goal Progress: Progressing Goal 2:: I with posture and modifications to manage symptom with ADLS' 50% of the time Goal Time Frame: 4-6 Weeks Goal Progress: Progressing Goal 3:: Patient to demonstrate 60% improvement with decrease back pain to improve ADLS' NEW GOAL Goal Time Frame: 4-6 Weeks Goal Progress: Progressing Goal 4:: Patient to demonstrate increase strength quads/hams 4/5 and hip flexion 4-/5 to improve gait . Goal Time Frame: 4-6 Weeks Goal Progress: Goal Met Goal 5:: Patient improve back owestry score by 5 points to improve QOL( new goal) Goal Time Frame: 4-6 Weeks Goal Progress: Progressing Goal 6:: Patient improve lumbar ROM for function of recovery to tie shoes. Goal Time Frame: 4-6 Weeks Anticipated Interventions Patient/Client Instruction: Educate patient on: Condition, Plan of Care For the Purpose of:: To decrease pain, To increase ROM, To improve muscle performance and motor function, To improve ability to perform ADL's, To increase tolerance to activity/condition/position, To improve performance and independence with ADL's, To improve ability of physical actions for home/community/work/leisure, To improve health of tissue, To decrease soft tissue restriction, To increase flexibility/ROM Therapeutic Exercise to Include: Strength training, Power training, Postural training, Flexibilty training, Active ROM, Dynamic Lumbar Stabilization Comment: BLE For the Purpose of:: To decrease pain, To increase ROM, To improve muscle performance and motor function, To improve ability to perform ADL's, To increase tolerance to activity/condition/position, To improve performance and independence with ADL's, To improve ability of physical actions for home/community/work/leisure, To improve health of tissue, To decrease soft tissue restriction, To increase flexibility/ROM Please do not hesitate to contact me at [phone] by phone or if you have questions or concerns regarding this new plan of care! Sincerely, Baldomero Silverman, PT, Cert MDT, OCS
--- NOTE | 2022-05-22 13:43 | HP.PTDCSUM ---
It has been my pleasure to treat LEE MORENO referred by RONA Barrera, with the diagnosis of LOW BACK PAIN,CHRONIC PAIN ,OSETEOATHRITIS AGE -RELATED OSTEOPOROSIS for a total of 31 visit(s). Discharge Date: Please see the following information for a summary of their discharge status. Subjective: Doing better overall in back Bilateral Back Pain Intensity (Out of 10): 2 Right Lower Extremity Pain Intensity (Out of 10): 0 LLE Pain Intensity (Out of 10): 0 % Improvement: 50 Objective/Function: Did well with ex's with DLS and postural ex's ..no increase in pain Goal 1:: I with HEP lumbar on land( new goal) Goal Progress: Progressing Goal 2:: I with posture and modifications to manage symptom with ADLS' 50% of the time Goal Progress: Progressing Goal 3:: Patient to demonstrate 60% improvement with decrease back pain to improve ADLS' NEW GOAL Goal Progress: Progressing Goal 4:: Patient to demonstrate increase strength quads/hams 4/5 and hip flexion 4-/5 to improve gait . Goal Progress: Goal Met Goal 5:: Patient improve back owestry score by 5 points to improve QOL( new goal) Goal Progress: Progressing Goal 6:: Patient improve lumbar ROM for function of recovery to tie shoes. Plan: cont poc. PRCAUTION:LATEX ALLERGY. P ROM/STRENGTHENING BLE, DLS, POSTURE EX'S AND FLEXABILITY If there are questions or concerns regarding this patient's physical therapy, please feel free to call me at [phone]. Thank you for the referral of this patient. Sincerely, Baldomero Silverman, PT, Cert MDT, OCS Balance/Gait/Functional tests - Balance/Special Test Scores Oswestry Low Back Score: 17 Quick DASH Score: 27.5000
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
--- NOTE | 2022-05-22 14:02 | HP.PTDCSUM ---
It has been my pleasure to treat LEE MORENO referred by RONA Barrera, with the diagnosis of LOW BACK PAIN,CHRONIC PAIN ,OSETEOATHRITIS AGE -RELATED OSTEOPOROSIS for a total of 32 visit(s). Discharge Date: Please see the following information for a summary of their discharge status. Subjective: Ready for d/c Bilateral Back Pain Intensity (Out of 10): 1 Right Lower Extremity Pain Intensity (Out of 10): 0 LLE Pain Intensity (Out of 10): 0 % Improvement: 60 Objective/Function: POSTURE: mild forward posture. GAIT : reciprocal pattern. MMT: 02/05. LUMBAR ROM: flexion min loss ,extension min loss Goal 1:: I with HEP lumbar on land( new goal) Goal Progress: Goal Met Goal 2:: I with posture and modifications to manage symptom with ADLS' 50% of the time Goal Progress: Goal Met Goal 3:: Patient to demonstrate 60% improvement with decrease back pain to improve ADLS' NEW GOAL Goal Progress: Goal Met Goal 4:: Patient to demonstrate increase strength quads/hams 4/5 and hip flexion 4-/5 to improve gait . Goal Progress: Goal Met Goal 5:: Patient improve back owestry score by 5 points to improve QOL( new goal) Goal Progress: Goal Met Goal 6:: Patient improve lumbar ROM for function of recovery to tie shoes. Goal Progress: Goal Met Plan: D/C If there are questions or concerns regarding this patient's physical therapy, please feel free to call me at [phone]. Thank you for the referral of this patient. Sincerely, Baldomero Silverman, PT, Cert MDT, OCS Balance/Gait/Functional tests - Balance/Special Test Scores Oswestry Low Back Score: 14 Quick DASH Score: 27.5000
--- NOTE | 2022-05-22 14:04 | HP.PTDCSUM ---
It has been my pleasure to treat LEE MORENO referred by Syed Alexander NP-Kirit, with the diagnosis of LOW BACK PAIN,CHRONIC PAIN ,OSETEOATHRITIS AGE -RELATED OSTEOPOROSIS for a total of 32 visit(s). Discharge Date: 05/22/22 Please see the following information for a summary of their discharge status. Subjective: Ready for d/c . Exercises really help to manage my pain Bilateral Back Pain Intensity (Out of 10): 1 Right Lower Extremity Pain Intensity (Out of 10): 0 LLE Pain Intensity (Out of 10): 0 % Improvement: 60 Objective/Function: POSTURE: mild forward posture. GAIT : reciprocal pattern. MMT: 02/05. LUMBAR ROM: flexion min loss ,extension min loss Goal 1:: I with HEP lumbar on land( new goal) Goal Progress: Goal Met Goal 2:: I with posture and modifications to manage symptom with ADLS' 50% of the time Goal Progress: Goal Met Goal 3:: Patient to demonstrate 60% improvement with decrease back pain to improve ADLS' NEW GOAL Goal Progress: Goal Met Goal 4:: Patient to demonstrate increase strength quads/hams 4/5 and hip flexion 4-/5 to improve gait . Goal Progress: Goal Met Goal 5:: Patient improve back owestry score by 5 points to improve QOL( new goal) Goal Progress: Goal Met Goal 6:: Patient improve lumbar ROM for function of recovery to tie shoes. Goal Progress: Goal Met Plan: D/C Discharge Comments: HEP If there are questions or concerns regarding this patient's physical therapy, please feel free to call me at [phone]. Thank you for the referral of this patient. Sincerely, Baldomero Silverman, PT, Cert MDT, OCS Balance/Gait/Functional tests - Balance/Special Test Scores Oswestry Low Back Score: 14 Quick DASH Score: 27.5000
== END 2022-06-21 19:00 | disposition home or self-care (01) ==
LOC: PT 13:00
PROVIDERS: PCP Internal Medicine; Referring Provider Nurse Practitioner Family; Visit Provider Nurse Practitioner Family
DX: M81.0 Age-related osteoporosis without current pathological fracture; M54.50 Low back pain, unspecified; G89.29 Other chronic pain; M19.011 Primary osteoarthritis, right shoulder; M19.012 Primary osteoarthritis, left shoulder
CPT/HCPCS: 97110; 97113; 97162; 97530

== ENCOUNTER → 2023-01-08 | Outpatient (CLI) | payer MEDICARE, MEDICAID, SELFPAY ==
[2023-01-08 13:10] LABS: AST(SGOT) 11 U/L (15-37); Alanine Aminotransfer ALT/SGPT 22 U/L (13-56); Albumin, Serum 3.3 g/dL (3.2-5.0); Alkaline Phosphatase 83 U/L (45-117); Bilirubin, Direct 0.09 mg/dL (0.00-0.30); Cholesterol 225 mg/dL (200); Globulin 4.4 g/dL (2.2-4.2); High Density Lipoprotein 53 mg/dL; Protein, Total 7.7 g/dL (6.4-8.2); Triglycerides 222 mg/dL; Very Low Density Lipoprotein 44 mg/dL (5-40)
[2023-01-08 13:25] LABS: Hemoglobin A1c 7.1 % (3.8-5.6)
== END | disposition home or self-care (01) ==
LOC: BIMLAB 09:38
PROVIDERS: PCP Internal Medicine; Referring Provider Nurse Practitioner Family; Visit Provider Nurse Practitioner Family
DX: E11.9 Type 2 diabetes mellitus without complications (principal); E78.2 Mixed hyperlipidemia
CPT/HCPCS: 36415; 80061; 80076; 83036

== ENCOUNTER 2023-09-12 13:00 | Outpatient (RCR) | payer MEDICARE, MEDICAID, SELFPAY ==
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
== END 2023-09-12 19:00 | disposition home or self-care (01) ==
LOC: PT 13:00
PROVIDERS: PCP Internal Medicine; Referring Provider Physician Assistant; Visit Provider Physician Assistant
DX: M25.511 Pain in right shoulder (principal); M25.512 Pain in left shoulder
CPT/HCPCS: 97035; 97110; 97140; 97162

== ENCOUNTER → 2023-10-10 | Outpatient (CLI) | payer MEDICARE, MEDICAID, SELFPAY ==
--- NOTE | 2023-10-10 09:48 | BI_ITS ---
MAMMOGRAPHY - BILATERAL SCREENING REASON FOR EXAM: Female, 63 years old. Routine annual screening examination. PERTINENT HISTORY: Non-contributory. TECHNIQUE: Digital bilateral breast joseluis (3D mammographic acquisition) in the CC and MLO projections. 2-D mediolateral oblique (MLO) and craniocaudad (CC) views of both breasts were obtained. CAD: Full Field Digital Mammography with Computer Added Detection was performed. COMPARISON: Comparison is made with prior study dated May 25, 2020. FINDINGS: Breast Composition: There are scattered areas of fibroglandular density. There are no dominant masses or suspicious calcifications. No other significant abnormalities are identified. There has been no significant change since the prior study. BI/SCRN MAMM (CAD)W/JOSELUIS BILAT IMPRESSION: Stable bilateral screening mammogram. Yearly follow-up mammogram recommended. (A) ASSESSMENT CATEGORY: BIRADS Category 1: Negative. A letter regarding these results will be sent to the patient by the facility within 30 days. Approximately 10% of breast cancers are not detected by mammography. A normal mammogram should not delay biopsy of a clinically suspicious abnormality. [id number] Electronically Signed: Portillo Lakhani MD at 12:22 EST ,
[2023-10-10 10:29] LABS: Bacteria 0 SEEN /hpf (None Seen); Mucous, Urine 0 SEEN /hpf (<or=2+); White Blood Cells 0 SEEN /hpf (0-5)
[2023-10-10 11:00] LABS: Color, Urine Yellow (Yellow); Glucose, Dipstick 1000 mg/dl (Normal); Ketone-Dipstick Negative (Negative); Leukocyte Esterase-Dipstick Negative /ul (Negative); Nitrite-Dipstick Negative (Negative); Occult Blood-Urine 10 /ul (Negative); Protein-Dipstick 15 mg/dl (Negative); Urine Bilirubin Dipstick Negative (Negative); Urine Clarity Sl. Cloudy (Clear); Urine Urobilinogen Normal (Normal)
[2023-10-10 11:01] LABS: Absolute Lymphocyte Count 3.44 X10^3/uL (0.83-4.51); Basophil# 0.07 X10^3/uL; Basophil% 0.8 % (0-1); Eosinophil# 0.27 X10^3/uL; Eosinophils% 2.9 % (0-5); Hematocrit 45.1 % (37-47); Hemoglobin 14.6 g/dL (12.0-15.0); Lymphocyte # 3.44 X10^3/ul (0.83-4.51); Lymphocyte % 36.9 % (19-41); Mean Corp Hgb Conc 32.4 g/dL (32-36); Mean Corpuscular Hgb 29.8 pg (27.0-32.0); Monocyte# 0.54 X10^3/uL; Monocyte% 5.8 % (0-10); NRBC Flagged by Analyzer 0 % (0-5); Neutrophil # 4.97 X10^3/uL (2.7-7.7); Neutrophil % 53.2 % (47-70); Platelet Count 254 K/mm3 (150-450); RBC Distribution Width CV 13.2 % (11.6-14.6); RBC Distribution Width SD 44.2 fl (35.1-43.9); White Blood Count 9.3 K/mm3 (4.4-11.0)
[2023-10-10 11:07] LABS: Red Blood Cells-Urine 0-5 SEEN /hpf (0-5)
[2023-10-10 11:08] LABS: Squamous Epithelial Cells - UA 0-5 SEEN /hpf (5-10)
[2023-10-10 11:26] LABS: Microalbumin,Random Urine 9.5 mg/L (NO RANGE EST.); Microalbumin:Creatinine Ratio 9.9 mg/g CRE (<30 mg/g CRE)
[2023-10-10 12:00] LABS: Vitamin B12 740 pg/mL (211-911); Vitamin D,25 Hydroxy 55.7 ng/mL
[2023-10-10 12:05] LABS: ALB/GLOB Ratio 0.9 RATIO (0.9-2.4); AST(SGOT) 14 U/L (15-37); Alanine Aminotransfer ALT/SGPT 25 U/L (13-56); Albumin, Serum 3.5 g/dL (3.2-5.0); Alkaline Phosphatase 76 U/L (45-117); Anion Gap 4 (5-15); BUN 15 mg/dL (7-18); BUN/Creat Ratio 17.8 RATIO (10-20); Calcium,Total 8.8 mg/dL (8.5-10.1); Chloride 109 mmol/L (98-107); Cholesterol 174 mg/dL (200); Creatinine, Serum 0.84 mg/dL (0.55-1.02); EST Glomerular Filtration Rate 73 mL/min (>60); Est Glom Filt Rate - Afr Amer 88 mL/min (>60); Globulin 3.8 g/dL (2.2-4.2); Glucose 142 mg/dL (74-106); High Density Lipoprotein 57 mg/dL; Potassium 4.1 mmol/L (3.5-5.1); Protein, Total 7.3 g/dL (6.4-8.2); Sodium Level 140 mmol/L (136-145); Thyroid Stim Hormone (TSH) 1.61 uIU/mL (0.358-3.74); Triglycerides 153 mg/dL; Very Low Density Lipoprotein 31 mg/dL (5-40)
== END | disposition home or self-care (01) ==
PROVIDERS: PCP Internal Medicine; Referring Provider Internal Medicine; Visit Provider Internal Medicine
DX: Z12.31 Encounter for screening mammogram for malignant neoplasm of breast (principal); E11.9 Type 2 diabetes mellitus without complications; M81.0 Age-related osteoporosis without current pathological fracture; E56.9 Vitamin deficiency, unspecified; N89.8 Other specified noninflammatory disorders of vagina
CPT/HCPCS: 36415; 77063; 77067; 80053; 80061; 81001; 82043; 82306; 82570; 82607; 84443; 85025

== ENCOUNTER → 2024-03-09 | Outpatient (CLI) | payer MEDICARE, MEDICAID, SELFPAY ==
[2024-03-09 12:29] LABS: Anion Gap 9 (5-15); BUN 17 mg/dL (7-18); BUN/Creat Ratio 17.4 RATIO (10-20); Calcium,Total 9.4 mg/dL (8.5-10.1); Chloride 107 mmol/L (98-107); Creatinine, Serum 0.98 mg/dL (0.55-1.02); EST Glomerular Filtration Rate 61 mL/min (>60); Est Glom Filt Rate - Afr Amer 74 mL/min (>60); Glucose 298 mg/dL (74-106); Potassium 3.7 mmol/L (3.5-5.1); Sodium Level 140 mmol/L (136-145)
== END | disposition home or self-care (01) ==
LOC: BIMLAB 09:33
PROVIDERS: PCP Internal Medicine; Visit Provider Internal Medicine
DX: E11.65 Type 2 diabetes mellitus with hyperglycemia (principal)
CPT/HCPCS: 36415; 80048

== ENCOUNTER 2024-07-15 15:00 | Outpatient (RCR) | payer MEDICARE, MEDICAID, SELFPAY ==
--- NOTE | 2024-05-25 09:43 | HP.PTEVAL_ITS ---
Patient's Visit Information Visit Information Visit Information: LEE MORENO is a 64 year old F referred to Physical Therapy by Dr. Alem Mckenna MD with a diagnosis of Multiple Joint Pain. Date of Evaluation: 05/25/24 Physical Therapist: Tomeka Corrigan DPT Visit Plan Frequency: 2x /Week Duration: 4 Weeks Plan: Aquatic- focus on GENTLE movement- full body- LE, UE, scap and core strength/stabilization Subjective Subjective: Patient reports that she has OA- she messed up her left shoulder and its making it a lot harder. When she is done with PT she does really well then she isn't as active she falls back. The knees are bad but she is unsure if she can do anything with them, they need replaced but she is not ready to do that. The right is the worst- its bone one bone. She has pain when she walks on her legs and it feels like its out of place. They keep her from sleeping. She has restless leg syndrome. She has not had any recent falls. She does not exercises the knees- she is nervous to work them and make them worse. The shoulders at least she can do something with those. If she reaches up with the left it lucas. She does feel that she has blurred vision but maybe due to DM. She has N/T in the hands but is unsure if its the neuropathy. PMHx/Meds: see chart. Objective Objective: Posture: forward head, rounded shoulders increased kyphosis- does not maintain throughout session when corrected with verbal and tactile cues Gait: no deviation noted- good arm swing and trunk rotation HR/TR: able with UE A but reports pain SLS: weight shift but unable to SLS Palpation: tender along medial and lateral joint lines of the knees, upper trap, bicipital groove and medial border of the scapula ROM: LE: WFL, Shoulder: Flexion: WFL with pain at end range, Abd: 90 degrees, IR: WNL with pain at end range, Cervical: WFL limited due to scarring, Elbow/Wrist/Hand: WNL Strength: Ankle/Knee: 5/5, Hip: Flexion: 4-/5, Extn: 4/5 Abd/Add: 4/5, IR/ER: 4- /5, Core: fair minus Scap: fair minus, Shoulder: 4-/5 throughout, Elbow: 5/5 Vocational Education Professional: good Balance/Special Test Scores Lower Extremity Functional Score: 27 Goals Goal 1:: Patient will be I with HEP and progression Goal Time Frame: 4-6 Weeks Goal 2:: Patient will maintain proper posture t/o tx session Goal Time Frame: 4-6 Weeks Goal 3:: Patient will report sleeping through the night for 2 nights Goal Time Frame: 4-6 Weeks Goal 4:: Patient will report 80% improvement Goal Time Frame: 4-6 Weeks Rehabilitation Potential Physical Therapy Diagnosis: Patient presents with hypomobility- she has decreased core/scap s/s, LE and UE strength/stabilization, flex and muscular endurance leading to increased pain with ADL's. Rehabilitation Potential: Fair Anticipated Interventions Therapeutic Exercise to Include: Strength training, Endurance training, Balance training, Coordination, Agility training, Body mechanics, Postural training, Fle xibilty training, Gait and locomotor training, Neuromotor development, In an aquatic setting, Dynamic Lumbar Stabilization and Scapular Strength/Stabilization For the Purpose of:: To improve muscle performance and motor function Text: Thank you for the opportunity to evaluate your patient. For Medicare and Medicare HMO plans, please review the plan of care and approve it. It will need to be FAXED BACK to us at [phone] for Medicare purposes. For Medicare only, by signing this I certify the plan of care. Please let me know if there are questions or concerns regarding this plan of care. Physician Signature: Date:
--- NOTE | 2024-08-27 09:19 | HP.PT.NRP ---
Patient Information Patient Information: LEE MORENO was seen in my office for initial evaluation on 05/25/24. The following Plan of Care was established for this patient: POC Established Initial Frequency: 2x /Week Initial Duration: 4 Weeks Anticipated Interventions Therapeutic Exercise to Include: Strength training, Endurance training, Balance training, Coordination, Agility training, Body mechanics, Postural training, Flexibilty training, Gait and locomotor training, Neuromotor development, In an aquatic setting, Dynamic Lumbar Stabilization and Scapular Strength/Stabilization For the Purpose of:: To improve muscle performance and motor function Last Seen Last Seen: This patient was last seen in our office . Pertinent comments regarding their Physical therapy will appear below: Chart on hold due to transportation issues- appropriate to be d/c and follow up as needed At this point I will be discontinuing this patient from physical therapy. I would be happy to see this patient again in the future if found appropriate by the physician. Thank you! Tomeka Corrigan, DPT Balance/Gait/Functional tests Balance/Special Test Scores Lower Extremity Functional Score: 27
== END 2024-07-15 19:00 | disposition home or self-care (01) ==
LOC: PT 15:00
PROVIDERS: PCP Internal Medicine; Referring Provider Internal Medicine; Visit Provider Internal Medicine
DX: M25.50 Pain in unspecified joint (principal)
CPT/HCPCS: 97113; 97162; 97530

== ENCOUNTER → 2025-02-15 | Outpatient (CLI) | payer MEDICARE, MEDICAID, SELFPAY | END | disposition home or self-care (01) | LOC: LAB 12:04 | PROVIDERS: PCP Internal Medicine; Referring Provider Internal Medicine; Visit Provider Internal Medicine | DX: Z00.00 Encounter for general adult medical examination without abnormal findings (principal) ==

== ENCOUNTER → 2025-02-15 | Outpatient (CLI) | payer MEDICARE, MEDICAID, SELFPAY ==
[2025-02-15 12:48] LABS: Absolute Neutrophil Count 6.7 X10^3/uL (2.0-7.7); Basophil# 0.08 X10^3/uL; Basophil% 0.7 % (0-1); Eosinophil# 0.37 X10^3/uL; Eosinophils% 3.3 % (0-5); Hematocrit 43.2 % (37-47); Hemoglobin 14.4 g/dL (12.0-15.0); Lymphocyte % 30.7 % (19-41); Mean Corp Hgb Conc 33.3 g/dL (32-36); Mean Platelet Vol. 9.9 fl (6.2-12.0); Monocyte# 0.53 X10^3/uL; Monocyte% 4.8 % (0-10); NRBC Flagged by Analyzer 0 % (0-5); Neutrophil # 6.67 X10^3/uL (2.7-7.7); Neutrophil % 60.3 % (47-70); Platelet Count 272 K/mm3 (150-450); RBC Distribution Width CV 13.3 % (11.6-14.6); RBC Distribution Width SD 43.9 fl (35.1-43.9); White Blood Count 11.1 K/mm3 (4.4-11.0)
[2025-02-15 13:41] LABS: Microalbumin,Random Urine < 12.0 mg/L (NO RANGE EST.); Microalbumin:Creatinine Ratio UNABLE TO CALCULATE mg/g CRE
--- NOTE | 2025-02-15 13:45 | BI_ITS ---
EXAM: SCRN MAMM (CAD)W/JOSELUIS BILAT DATE: 02/15/2025 CLINICAL HISTORY: F, Age 64 y/o , SCREENING No family history. BREAST CANCER RISK ASSESSMENT: Not assessed TECHNIQUE: Bilateral screening digital breast tomosynthesis with 2D and 3D images. Computer aided detection. COMPARISON: Prior exam(s) dated October 10, 2023.. FINDINGS: TISSUE DENSITY: The breast tissue is composed of scattered area of fibroglandular density. Bilateral Breast Mammographic Findings: No significant masses, calcifications or other abnormalities are identified. BI/SCRN MAMM (CAD)W/JOSELUIS BILAT IMPRESSION: Right Breast: BIRADS 1 NEGATIVE. Left Breast: BIRADS 1 NEGATIVE. OVERALL FINAL ASSESSMENT: BIRADS 1 NEGATIVE RECOMMENDATION: Routine annual follow-up in 1 Year A letter with findings and recommendations will be mailed to the patient. Reading Location: [place] [id number]
[2025-02-15 13:59] LABS: ALB/GLOB Ratio 1.1 RATIO (0.9-2.4); AST(SGOT) 14 U/L (<=31); Alanine Aminotransfer ALT/SGPT 14 U/L (<=34); Alkaline Phosphatase 92 U/L (35-104); Anion Gap 12 (5-15); BUN 16 mg/dL (4-19); BUN/Creat Ratio 18.8 RATIO (10-20); Calcium,Total 9.4 mg/dL (7.6-11.0); Carbon Dioxide 22.7 mmol/L (21.0-32.0); Chloride 105 mmol/L (98-108); Cholesterol 167 mg/dL (<=200); Creatinine, Serum 0.85 mg/dL (0.70-1.20); EST Glomerular Filtration Rate 77 (>60); Globulin 3.5 g/dL (2.2-4.2); Glucose 176 mg/dL (70-99); High Density Lipoprotein 58 mg/dL; Low Density Lipoprotein Calc. 81 mg/dL; Potassium 4.1 mmol/L (3.3-5.1); Protein, Total 7.5 g/dL (5.9-8.4); Sodium Level 139 mmol/L (133-145); Total Bilirubin 0.33 mg/dL (0.00-1.30); Triglycerides 144 mg/dL; Very Low Density Lipoprotein 29 mg/dL (5-40); Vitamin D,25 Hydroxy 46.5 ng/mL (30-100); cholesterol:hdl ratio screen 2.89
== END | disposition home or self-care (01) ==
LOC: OPBI 12:37
PROVIDERS: PCP Internal Medicine; Referring Provider Internal Medicine; Visit Provider Internal Medicine
DX: Z12.31 Encounter for screening mammogram for malignant neoplasm of breast (principal); E11.65 Type 2 diabetes mellitus with hyperglycemia; E55.9 Vitamin D deficiency, unspecified; J45.20 Mild intermittent asthma, uncomplicated; J30.2 Other seasonal allergic rhinitis
CPT/HCPCS: 36415; 77063; 77067; 80053; 80061; 82043; 82306; 82570; 82785; 84443; 85025; 86003